=== PATIENT | female | born 1995 | race Caucasian/White ===

== ENCOUNTER 2017-03-11 18:42 | Emergency (ER) | payer SELFPAY ==
[~2017-03-11] VITALS: Ht 162.6 cm; Wt 52.3 kg
[2017-03-11 19:09] VITALS: BP 104/68; PULSE 74; RESP 16; O2SAT 99
--- NOTE | 2017-03-11 19:59 | DRSVH ---
PROCEDURE: X-RAY LEFT TIBIA/FIBULA, TWO VIEWS ([id number]) INDICATIONS: injury TECHNIQUE: 2 views of the tibia and fibula were acquired. COMPARISON: None. FINDINGS: Bones: No fractures or dislocations. No suspicious bony lesions. Soft tissues: No suspicious soft tissue calcifications or masses. IMPRESSION: 1. No fracture or dislocation. Dictated by: Byron Stevenson M.D. on 03/11/2017 at 19:57 Approved by: Byron Stevenson M.D. on 03/11/2017 at 19:58
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
[2017-03-11] MEDS ORDERED: IBUP-1827 PO (21:16)
[2017-03-11 21:53] VITALS: BP 111/69; PULSE 72; RESP 20; O2SAT 98
== END 2017-03-11 21:53 | disposition home or self-care (01) ==
LOC: SED 18:42
DX: S80.12XA Contusion of left lower leg, initial encounter (principal); W23.1XXA Caught, crushed, jammed, or pinched between stationary objects, initial encounter; Y93.89 Activity, other specified; Y92.89 Other specified places as the place of occurrence of the external cause; Y99.8 Other external cause status; Z88.2 Allergy status to sulfonamides